=== PATIENT | male | born 1990 | race African-American/Black ===

== ENCOUNTER 2021-10-08 | Emergency (ER) | payer SELFPAY ==
[~2021-10-08] VITALS: Ht 180.3 cm; Wt 74.8 kg
--- NOTE | 2021-10-08 00:18 | NUR ---
pt presented to er for right groin pain, states there is drainage. pt ambulatory with steady gait. denies c/p or sob.
[2021-10-08] MEDS ORDERED: LIDOCAINE 1%-EPI 1:100,000 20 ML VIAL ONE (00:21)
[2021-10-08] MEDS ORDERED: SULF1TAB48 PO (01:13)
--- NOTE | 2021-10-08 01:24 | NUR ---
Patient discharged to home in stable condition. Written and verbal after care instructions given. Patient verbalizes understanding of instructions. Stressed follow up or return to ER for worsening s/s. Steady gait, wound covered in clean dry dressing, packed by Dr. Garcia. Denies any pain upon discharge.
[2021-10-08 01:26] VITALS: BP 142/76
== END 2021-10-08 01:22 | disposition home or self-care (01) ==
LOC: ER 00:08
DX: L02.214 Cutaneous abscess of groin (principal)
CPT/HCPCS: 10060; 99283; J3490; A4663